=== PATIENT | male | born 1950 | race Caucasian/White ===

== ENCOUNTER 2018-11-19 23:00 | Emergency (ER) | payer MEDICARE, OTHER, MEDICAID ==
[~2018-11-19] VITALS: Ht 172.7 cm; Wt 73.0 kg
[2018-11-20] MEDS ORDERED: HYDROCODONE/ACETAMINOPHEN 5/325MG TABLET PO ONE (00:15)
[2018-11-20 02:46] VITALS: BP 126/68
== END 2018-11-20 03:12 | disposition home or self-care (01) ==
LOC: ER 23:00
DX: S09.8XXA Other specified injuries of head, initial encounter (principal); S62.317A Displaced fracture of base of fifth metacarpal bone, left hand, initial encounter for closed fracture; E78.00 Pure hypercholesterolemia, unspecified; I10 Essential (primary) hypertension; Y08.89XA Assault by other specified means, initial encounter; Y93.9 Activity, unspecified; Y92.89 Other specified places as the place of occurrence of the external cause
CPT/HCPCS: 29125; 70486; 73130; 99284; A4565